=== PATIENT | female | born 1995 | race African-American/Black ===

== ENCOUNTER 2018-11-25 15:56 | Emergency (ER) | payer MEDICAID, OTHER ==
[~2018-11-25] VITALS: Ht 160 cm; Wt 67.0 kg
[2018-11-25] MEDS ORDERED: IBUPROFEN 600MG TABLET PO ONE (20:00)
[2018-11-25 21:35] VITALS: BP 123/70
== END 2018-11-25 21:35 | disposition home or self-care (01) ==
LOC: ER 15:56
DX: J40 Bronchitis, not specified as acute or chronic (principal); M25.512 Pain in left shoulder; F12.10 Cannabis abuse, uncomplicated
CPT/HCPCS: 71045; 73010; 81025; 99283

== ENCOUNTER 2025-01-31 23:07 | Emergency (ER) | payer MEDICAID, OTHER ==
[~2025-01-31] VITALS: Ht 160 cm; Wt 62.0 kg
[2025-01-31 23:15] VITALS: RESP 18; TEMP 36.7; O2SAT 99
[2025-02-01 00:21] LABS: BASOPHILS % 0.7 % (0.0-2.0); EOSINOPHILS % 1.4 % (0.0-5.0); HEMATOCRIT. 40.8 % (36.0-48.0); HEMOGLOBIN. 13.5 g/dL (12.0-16.0); LYMPHOCYTES % 37.8 % (20.0-50.0); MEAN CORPUSCULAR HEMOGLOBIN 30.3 pg (28.0-32.0); MEAN CORPUSCULAR HGB CONC 33.2 g/dL (31.0-37.0); MEAN CORPUSCULAR VOLUME 91.4 fL (81.0-99.0); MEAN PLATELET VOLUME 6.3 fl (7.4-10.4); MONOCYTES % 7.8 % (2.0-8.0); NEUTROPHILS % 52.3 % (40.0-76.0); PLATELET 242 x1000/uL (130-400); RED BLOOD CELL COUNT 4.47 mill/uL (4.2-5.4); RED CELL DISTRIBUTION WIDTH 12.8 % (11.6-14.6); WHITE BLOOD COUNT 7.4 x1000/uL (4.5-11.0)
[2025-02-01 00:33] LABS: CHLORIDE 102 mEq/L (98-107); POTASSIUM 4.9 mEq/L (3.5-5.1); SODIUM 137 mEq/L (136-145)
[2025-02-01 00:34] LABS: CALCIUM 9.4 mg/dL (8.7-10.4); CARBON DIOXIDE 29 mEq/L (21-32)
[2025-02-01 00:38] LABS: HCG SCREEN NEGATIVE
[2025-02-01 00:39] LABS: GLUCOSE 95 mg/dL (70-105); UREA NITROGEN BLOOD 10 mg/dL (9-23)
[2025-02-01 00:42] LABS: TROPONIN I HIGH SENSITIVITY < 4 ng/L (3.0-34)
[2025-02-01 01:32] VITALS: BP 108/68; PULSE 55; O2SAT 100
== END 2025-02-01 01:35 | disposition home or self-care (01) ==
LOC: ER 23:07
DX: R00.2 Palpitations (principal); F12.90 Cannabis use, unspecified, uncomplicated; F10.90 Alcohol use, unspecified, uncomplicated; Y90.9 Presence of alcohol in blood, level not specified
CPT/HCPCS: 36415; 71045; 80048; 84484; 84703; 85025; 93005; 99285